=== PATIENT | male | born 1930 | race Caucasian/White ===

== ENCOUNTER 2017-01-13 01:19 | Emergency (ER) | payer MEDICARE, OTHER ==
--- NOTE | 2017-01-18 02:33 | ER ---
ADMIT: 01/13/2017 RM/LOC: ER [facility] MR#: [id number] 2620 [facility] [address] [place], [place] [address] DOYLE MUÑOZ Celso [address] [place] [address] Emergency Room Report SEX: M AGE: 86 : 1930 DATE: 01/13/2017 TIME: 0119 Please refer to my T-sheet for complete H and P. HISTORY OF PRESENT ILLNESS: Briefly, the patient comes in with just not feeling well. Problems urinating. He is a dialysis patient, end-stage renal disease. He does not make much urine anyway, but he just seems like not as much as normal, little upset stomach. He just finished an antibiotic a couple of days ago. He dialyzed this morning. He has planned on going there after he visits us here. It has been going on for about 2 to 3 days. PHYSICAL EXAMINATION: VITAL SIGNS: Blood pressure 125/87, pulse 112, respirations 18, temp 97, saturating 95%. GENERAL: No acute distress. HEENT: Head is atraumatic, normocephalic. Pupils equal, round, and reactive to light. Extraocular muscles intact. TMs clear. Throat clear. NECK: Soft, supple. No meningismus. LUNGS: Clear. HEART: Irregularly irregular. No murmur. ABDOMEN: Soft. SKIN: No rash. EMERGENCY DEPARTMENT COURSE: CBC was normal except white count 3.9, hemoglobin 9.7, platelets 131. Chemistries normal except BUN 71, glucose 104, creatinine 7.4. UA normal except 2+ protein. EKG was AFib, right bundle- branch block, rate 112. I gave him 500 mL bolus, he felt much better. I had a long discussion, ready for discharge. ASSESSMENT: 1. Dehydrated. 2. Weakness. PLAN: Follow up with his primary, go to dialysis. He recently did start metoprolol. I would like him talk to his primary about it if it continues to give him problems. Dwayne Sy MD/ deshaun JOB #: [id number] CC: Dwayne Sy MD, Attending Physician
[2017-01-18] MEDS ORDERED: ZESTRIL DPS10 MG PO (13:56)
[2017-01-18] MEDS ORDERED: LEVOTHYROXINE75 MCG PO (13:56)
[2017-01-18] MEDS ORDERED: SURFAK DPS240 MG PO (13:57)
[2017-01-18] MEDS ORDERED: PRILOSEC DPS20 MG PO (13:57)
[2017-01-18] MEDS ORDERED: CARDIZEM CD240 M1 PO (13:57)
[2017-01-18] MEDS ORDERED: COLACE-DPS100 MG PO (13:57)
[2017-01-18] MEDS ORDERED: NEPHROCAPS SOFTG1 MG PO (13:57)
[2017-01-18] MEDS ORDERED: PHOS-LO667 MG PO (13:57)
[2017-01-18] MEDS ORDERED: TYLENOL DPS325 MG PO (13:58)
== END 2017-01-13 03:10 | disposition home or self-care (01) ==
LOC: ER 01:19
DX: E86.0 Dehydration (principal); R39.15 Urgency of urination; I10 Essential (primary) hypertension; K21.9 Gastro-esophageal reflux disease without esophagitis; E03.9 Hypothyroidism, unspecified; Z79.899 Other long term (current) drug therapy

== ENCOUNTER 2017-01-15 09:19 | Observation (INO) | payer MEDICARE, OTHER ==
[~2017-01-15] VITALS: Ht 180.3 cm; Wt 80.5 kg
--- NOTE | 2017-01-17 09:46 | CO ---
ADMIT: 01/15/2017 RM/LOC: 408 [facility] MR#: [id number] 26[address] [facility] [address] [place], [place] [address] DOYLE MUÑOZ Celso [address] [place] [address] Consultation SEX: M AGE: 86 : 1930 DATE OF CONSULTATION: 01/16/2017 ATTENDING PHYSICIAN: Patti Valencia CONSULTING PHYSICIAN: Chava Florian MD REASON FOR CONSULTATION: End-stage renal disease, on hemodialysis. HISTORY OF PRESENT ILLNESS: The patient is a pleasant 86-year-old gentleman, who has a history of end-stage renal disease, for which he dialyzes on a Monday, Monday, Monday schedule. His last dialysis was this past Monday. He has a history of paroxysmal atrial fibrillation but over the last couple of months, he has been more or less in atrial fibrillation. He was evaluated by [facility] as an outpatient. Last week, he was noted to be tachycardic and I had started him on metoprolol-XL. He notes that he has been very weak over the last 1 week. He eventually presented to the hospital yesterday and was found to be in atrial fibrillation with RVR. He has been having some chest discomfort and upper abdominal discomfort as well. He was changed over from beta blockers to calcium channel blockers, and his heart rate is well controlled now. He is asymptomatic and has no complaints. I have seen and evaluated him on dialysis and he is doing fairly well. We are on target to get him down to his dry weight. REVIEW OF SYSTEMS: A complete review of systems is negative in detail except as mentioned in history of present illness above. PAST MEDICAL HISTORY: 1. End-stage renal disease, secondary to postinfectious glomerulonephritis. Current dialysis schedule is Monday, Monday, and Monday. 2. Atrial fibrillation. 3. GERD. 4. Osteoarthritis, status post left knee arthroplasty. 5. Hemolytic anemia. 6. Cataract removal. 7. Hypothyroidism. 8. Hypertension. 9. Left upper arm AV fistula. ALLERGIES: NO KNOWN DRUG ALLERGIES. MEDICATIONS: Reviewed in the chart. FAMILY HISTORY: No family history of chronic kidneys or renal replacement therapy. Mother from cancer. Father from lung disease. SOCIAL HISTORY: He is . He lives at home. No ongoing tobacco, alcohol, or recreational drug use. PHYSICAL EXAMINATION: VITAL SIGNS: Temperature 96.2 Fahrenheit, pulse 71, ADMIT: 01/15/2017 RM/LOC: 408 [facility] MR#: [id number] [address] [address] WANDA DOYLE P [address] [place] [address] Consultation SEX: M AGE: 86 : 1930 blood pressure 129/70, saturating 94% on room air. GENERAL: He is comfortable. HEENT: Head is nontraumatic and normocephalic. Extraocular movements are intact. No conjunctival pallor. Moist mucosa. NECK: Supple without any JVDs. CVS: Irregular. S1, S2 heard. No rubs, murmurs, or gallops. ABDOMEN: Soft and nontender. CHEST: Clear to auscultation. EXTREMITIES: No edema. SKIN: No rash or nodules. NEUROLOGIC: Alert, awake, and oriented x3. Does move all extremities. PSYCHIATRIC: Affect and memory within normal limits. MUSCULOSKELETAL: Major joints within normal limits. Range of motion within normal limits. LABORATORY DATA: Reviewed. BMP with creatinine of 8.6, BUN was 45, albumin was 3.2. Hemoglobin 10.2, platelets 128. Sodium 135, potassium 4.4, and CO2 of 26. ASSESSMENT AND PLAN: 1. End-stage renal disease, on hemodialysis-I will dialyze him today. He is doing fairly well on dialysis currently. 2. Hypertension-I will provide him ultrafiltration as his hemodynamics allow in order to get him down to his dry weight. 3. Anemia of chronic kidney disease-hemoglobin is acceptable. Continue to monitor. Thank you for this consultation and allowing me the opportunity to participate in this patient's care. Please do not hesitate to contact me with any questions. Chava Florian MD/ deshaun JOB #: [id number] CC: Patti Valencia, Attending Physician Patti Valencia, Family Physician
[2017-01-18] MEDS ORDERED: LEVOTHYROXINE75 MCG PO (13:56)
[2017-01-18] MEDS ORDERED: ZESTRIL DPS10 MG PO (13:56)
[2017-01-18] MEDS ORDERED: PHOS-LO667 MG PO (13:57)
[2017-01-18] MEDS ORDERED: SURFAK DPS240 MG PO (13:57)
[2017-01-18] MEDS ORDERED: PRILOSEC DPS20 MG PO (13:57)
[2017-01-18] MEDS ORDERED: CARDIZEM CD240 M1 PO (13:57)
[2017-01-18] MEDS ORDERED: COLACE-DPS100 MG PO (13:57)
[2017-01-18] MEDS ORDERED: NEPHROCAPS SOFTG1 MG PO (13:57)
[2017-01-18] MEDS ORDERED: TYLENOL DPS325 MG PO (13:58)
--- NOTE | 2017-01-19 13:33 | HP ---
ADMIT: 01/15/2017 RM/LOC: 408 [facility] MR#: [id number] [address] [facility] [address] [place], [place] [address] DOYLE MUÑOZ [address] [address] History and Physical SEX: M AGE: 86 : 1930 DATE OF SERVICE: CHIEF COMPLAINT: Two-day history of increasing weakness and now left lower chest - primarily left upper abdominal "discomfort" and "I feel like crap." HISTORY OF PRESENT ILLNESS: Mr. Muñoz is a very nice 86-year-old , retired [employer], who is on chronic hemodialysis for the last seven or eight years and follows with Dr. Florian on a Plunvk-Uxecfunup-Dvtglv dialysis schedule. He and his family live in [place] and he [facility]. He came to the emergency room two days ago (01/13/2017) because he was just not feeling very well and was having some problems urinating (he does not make much urine anyway, but he did not think it was normal) and "a little upset stomach." He had just finished Cefzil a couple of days prior because of diagnosis of sinusitis, but those symptoms had cleared. In the emergency room two days ago, his vital signs were normal but for an irregular pulse of 112. His chemistries were normal/stable. He got a 500 mL bolus of saline and "he felt much better. He was ready for discharge." Interestingly, he is followed by Derek Glover at their [facility] and approximately five days ago, metoprolol succinate ER 50 mg one q.p.m. was added for rate control. He and his family report that "they wanted to put him on anticoagulation but because of his dialysis, he bleeds a lot anyway", so that was not done. He had his first dose last Monday (it is now Monday) and he states "I think that is the problem." He came back to the emergency room this morning because of weakness and feeling "poorly." His vital signs were reasonable, his chemistries were normal/stable, creatinine of 7.5 (due for dialysis tomorrow), and his cardiac enzymes were normal but for slight bump in his troponin at 0.110 NG/mL (normal less than 0.040). We do not have any other records of what his troponin might be other than back in July of 2011, he had a troponin done that was 0.049. He was given some fluids. He was noted to be anemic in the range of 9.7, but that was stable over his visit two days prior. White count of 3500, platelets of 141,000, and he was admitted for observation given the elevated troponin. His chest x-ray report is still pending but to my eye, he has mild cardiomegaly but I do not see any active signs of failure. He is now admitted for further evaluation and treatment o.p.o. to telemetry. PAST MEDICAL HISTORY: The patient's other health history includes having a left total knee arthroplasty with Dr. Carpio back in December of 2008. He has had previous cataract surgery. He carries a diagnoses of hypothyroidism, chronic GERD, systemic hypertension, and his atrial fibrillation (apparently has been in atrial fibrillation for a couple of years). CURRENT MEDICATIONS: 1. Levothyroxine 75 mcg q.a.m. 2. Lisinopril 10 mg q.a.m. 3. Nephrocaps one cap q.p.m. 4. Amlodipine 10 mg at noon. 5. Omeprazole 20 mg one capsule at noon. 6. Colace 100 mg q.a.m. ADMIT: 01/15/2017 RM/LOC: 408 [facility] MR#: [id number] [address] [address] DOYLE MUÑOZ [address] [place] [address] History and Physical SEX: M AGE: 86 : 1930 7. Stool softener one tab q.p.m. 8. Calcium acetate 66 mg (?) one cap b.i.d. 9. Metoprolol succinate ER 50 mg one q.p.m. (just started 4-5 days ago). ALLERGIES: THERE ARE NO ALLERGIES REPORTED TO FOOD OR MEDICATION. SOCIAL HISTORY: Reveals he has never been a smoker. Does not use alcohol - at least extremely rarely. He is retired from farming. He lives independently in his home, and family is very attentive to him. FAMILY HISTORY: From old records is negative for diabetes, cancer, heart disease, and hypertension. REVIEW OF SYSTEMS: Essentially negative otherwise. He reports no fever "although sometimes I have some chills." He has recovered from his "sinus infection" and as noted above, has been off his Ceftin antibiotic x5 or 6 days. He denies any real ominous chest pain - his pain he is just complaining of is actually more left epigastric/left upper quadrant and it is more of a "discomfort." He has had no difficulty breathing. He has had no unexplained episodes of diaphoresis or nausea. He has had no nausea, vomiting, or diarrhea. States his bowels have been normal. He has had no increased swelling of lower extremities. His arthritis symptoms seem stable. PHYSICAL EXAMINATION: GENERAL: He is alert. VITAL SIGNS: Show a blood pressure of 135/85, pulse of about 110 to 120, in atrial fibrillation, respirations of 18, O2 sats 92% on room air. HEENT: Otherwise negative. NECK: Reasonably supple. I detect no obvious bruits. LUNGS: Sound clear to auscultation. CARDIAC: Exam shows an irregular regular cardiac rhythm with a soft, grade 2-3 systolic murmur (loudest at the left lower sternal border). I do not detect any displacement of his PMI or "heave". ABDOMEN: Soft. No masses, tenderness, or organomegaly. GENITAL/RECTAL: Exam was not done. EXTREMITIES: Show reasonable peripheral pulses. No edema. Obvious arthritic changes in hands, knees, and feet. NEUROLOGIC: Shows no focal signs. IMPRESSION: 1. Increasing weakness - possibly iatrogenic (beta-lulu). 2. Left upper quadrant pain/"discomfort" - associated with #1. 3. Chronic kidney disease, end-stage - on dialysis. 4. Diffuse osteoarthritis - status post left total knee arthroplasty. ADMIT: 01/15/2017 RM/LOC: 408 [facility] MR#: [id number] [address] [facility] [address] [place], [place] [address] DOYLE MUÑOZ P [address] [place] [id number] History and Physical SEX: M AGE: 86 : 1930 5. Gastroesophageal reflux disease. 6. Hypothyroidism. 7. Systemic hypertension. PLAN: He has been admitted. Given the atrial fibrillation with RVR and his minimal bump in troponin (which I think is most likely due to his kidney disease), we will get Cardiology consult. Dr. Florian has also been notified and will follow him for dialysis. Further treatment will depend on his response to our initial therapies and our workup. I have reviewed this with Doyle and his family, I think they are comfortable with that approach. Nico Gutierrez MD/ deshaun JOB #: [id number] CC: Nico Gutierrez, Attending Physician Nico Gutierrez, Family Physician SANDRA Christianson
--- NOTE | 2017-01-25 07:58 | DS ---
ADMIT: 01/15/2017 RM/LOC: 408 [facility] MR#: [id number] [address] [address] DOYLE MUÑOZ Cel[place] [address] [place] [address] Discharge Summary SEX: M AGE: 86 : 1930 ADMISSION DATE: 01/15/2017 DISCHARGE DATE: 01/17/2017 DISCHARGE DIAGNOSES: 1. Weakness. 2. Vague chest pain. 3. History of end-stage renal disease, on hemodialysis. 4. History of known gastroesophageal reflux disease. 5. Hypothyroidism. 6. Hypertension. 7. Recent medication changes with intolerance to Toprol therapy. 8. Evidence of atrial fibrillation, currently on no anticoagulation. HISTORY OF PRESENT ILLNESS: Well documented. His laboratory and radiographic assessment is as follows: On admission, white count was 3.5, hemoglobin 9.7, platelet count of 141,000. His sodium was 135, potassium 4.4, BUN and creatinine 45 and 8.6, blood sugar of 127. Liver function studies were normal. TSH 6.28. His chest x-ray show cardiomegaly with modest interstitial edema. Ultrasound of the abdomen showed hepatomegaly and mild nodularity at the margin of the gallbladder. There are gallstones within the gallbladder. The gallbladder wall is symmetrically thickened. No adjacent fluid. He is nontender on exam. EKG showed atrial fibrillation, left axis deviation, right bundle-branch block. Left anterior fascicular block. HOSPITAL COURSE: This elderly white gentleman, who has a history of end-stage renal disease, who is seen frequently by Dr. Florian, rarely by myself, is admitted to [facility] after becoming pill. After med changes were made for his atrial fibrillation. He had been started on metoprolol, he developed complaints of weakness, feeling poorly. He was brought in and had mild upset nausea. He was brought into the hospital for continued evaluation and care. Initially, on admission, he had serial cardiac enzymes performed. He was followed by Nephrology as well as ask Cardiology to see him. Gentle IV hydration initially. His metoprolol was held. He underwent further assessment with an ultrasound of his abdomen. He was started on Cardizem CD 240 mg 1 tablet daily for rate control. blood pressure performed, he did not have any evidence of orthostasis. Further assessment of his vague abdominal discomfort. Amylase and lipase were normal. Ultrasound of abdomen was obtained. He will increase activity with PT and OT. He did undergo hemodialysis. He subsequently was discharged on 01/18. No anticoagulation or atrial fibrillation secondary to bleeding risk, history of end-stage renal disease. His oxygen was weaned off and he subsequently was discharged home. ADMIT: 01/15/2017 RM/LOC: 408 [facility] MR#: [id number] [address] [address] DOYLE MUÑOZ [address] [place] [address] Discharge Summary SEX: M AGE: 86 : 1930 DISCHARGE MEDICATIONS: At the time of his discharge, we will continue on: 1. Cardizem 240 mg once daily. 2. Colace 100 mg daily. 3. Nephro-Monique one tablet daily. 4. PhosLo 1 tablet t.i.d. 5. Omeprazole 20 mg daily. 6. Synthroid 0.075 mg daily. 7. Zestril 10 mg p.o. daily. 8. . He was discharged in stable condition. He will follow up through Cardiology as well as follow up with Dr. Florian as he goes to hemodialysis with regular assessment. Patti Valencia MD/ deshaun JOB #: [id number] CC: Patti Valencia MD, Attending Physician Patti Valencia MD, Family Physician
--- NOTE | 2017-01-27 14:44 | CO ---
ADMIT: 01/15/2017 RM/LOC: 408 [facility] MR#: [id number] 2620 [facility] [address] [place], [place] [address] DOYLE MUÑOZ [address] [place] [address] Consultation SEX: M AGE: 86 : 1930 DATE OF CONSULTATION: 01/15/2017 ATTENDING PHYSICIAN: Patti Valencia CONSULTING PHYSICIAN: Phong Rose MD REASON FOR CONSULTATION: Atrial fibrillation with rapid ventricular response and weakness and indeterminate troponin. HISTORY OF PRESENT ILLNESS: Doyle is a pleasant 86-year-old male, whom I was asked to see in consultation from Dr. Gutierrez regarding atrial fibrillation, indeterminate troponin, and weakness. He has been on chronic hemodialysis he says since November of 2011. He follows with Dr. Florian here in [facility], but lives in [place] and is normally seen in the [facility]. He has a history of paroxysmal atrial fibrillation but had been maintaining sinus rhythm and has a history of sinus bradycardia. He states about 2 months ago, he was noted to be in atrial fibrillation and was seen by [facility] and [facility]. They told him that his valve was leaking and they discussed anticoagulation but given his hemodialysis and high bleeding risk, it was decided against anticoagulation. This was about 2 months ago and then after further consultation with his primary care physician, he was started on metoprolol succinate 50 mg about five days ago for rate control. He says ever since starting the metoprolol, he has felt terrible, he has been weak, he had do get some IV fluids after dialysis. He dialyzed Monday and then became a little dehydrated and received some IV fluids. He is also anemic, and he is also complaining of left epigastric discomfort. PAST MEDICAL HISTORY: 1. Atrial fibrillation. 2. History of hypertension. 3. History of end-stage renal disease, on chronic hemodialysis. 4. History of left total knee arthroplasty in 2008. 5. History of cataract surgery. 6. History of hypothyroidism. 7. History of GERD. CURRENT MEDICATIONS: 1. Levothyroxine 75 mcg daily. 2. Lisinopril 10 mg daily. 3. Nephrocaps daily. 4. Amlodipine 10 mg at noon. 5. Omeprazole 20 mg at noon. 6. Colace 100 mg q.a.m. stool softener daily. 7. Calcium acetate one capsule b.i.d. 8. Metoprolol succinate 50 mg q.p.m. started just five days ago. ALLERGIES: NO KNOWN DRUG ALLERGIES. ADMIT: 01/15/2017 RM/LOC: 408 [facility] MR#: [id number] [address] [address] DOYLE MUÑOZ [address] [place] [address] Consultation SEX: M AGE: 86 : 1930 SOCIAL HISTORY: He has never been a smoker. Denies any alcohol use. He is retired from farming. Lives independently in [place]. He has family that is closely involved in his care. FAMILY HISTORY: No family history of premature coronary artery disease. There is a family history of Parkinson's in his father, asthma in his mother, and cancer in his mother. REVIEW OF SYSTEMS: GENERAL: He has had fatigue and decreased energy. Denies any recent weight changes. HEENT: He had a sinus infection recently. Denies any visual changes. No difficulty swallowing. CARDIAC: Denies any chest pain. PULMONARY: Denies any hemoptysis. No difficulty breathing. GI: He has had some left upper quadrant pain. Denies any diarrhea or vomiting. NEUROLOGIC: No TIA or strokes. MUSCULOSKELETAL: He has arthritis. ENDOCRINE: History of hypothyroidism, on replacement. SKIN: Denies any rashes. PSYCHIATRIC: Denies any depression. His family is saying he has been very anxious and is asking about pills for anxiety. All other systems are reviewed and negative. PHYSICAL EXAMINATION: VITAL SIGNS: Blood pressure is 135/82, pulse is 110 and irregular, temperature 96.8, oxygen 90% on room air. GENERAL: He is in no acute distress. He is alert, oriented, and conversant. HEENT: Normocephalic, atraumatic. Moist mucous membranes. NECK: Supple. JVP is difficult to visualize. There is no bruits auscultated. No lymphadenopathy. LUNGS: Clear to auscultation bilaterally. HEART: Irregularly irregular. He has a 3/6 holosystolic murmur at the left sternal border and apex. ABDOMEN: Soft. He has some mild tenderness in the left upper quadrant and epigastric area. This is fairly mild. There is no rebound tenderness. EXTREMITIES: He has no edema. No cyanosis or clubbing. He has changes of arthritis. NEUROLOGIC: Cranial nerves II through XII intact. PSYCHIATRIC: He is alert, oriented, and appropriate. IMPRESSION AND PLAN: 1. Atrial fibrillation with rapid ventricular response. 2. Likely mitral regurgitation. 3. Weakness, possibly beta-lulu induced. 4. End-stage renal disease, on hemodialysis x5 years. 5. Abdominal pain. ADMIT: 01/15/2017 RM/LOC: 408 [facility] MR#: [id number] [facility] [address] [address] DOYLE MUÑOZ [address] [place] [address] Consultation SEX: M AGE: 86 : 1930 RECOMMENDATIONS: He has a history of paroxysmal atrial fibrillation and was found apparently recently to be in persistent atrial fibrillation for about the last two months. His heart rate has been rapid and was just started on beta-lulu couple days ago. He was seen at [facility] in [place] and had an echo done. We will get the results of this echo. They did decide against anticoagulation given his hemodialysis and bleeding risk. At this point, I am not sure if all of his symptoms are from the beta-lulu but they certainly may be contributing. We will stop his Toprol. We will also stop his amlodipine and change this to Cardizem CD for rate control with his atrial fibrillation. His primary doctor is working up his abdominal pain with an ultrasound and getting Physical Therapy and Occupational Therapy involved. Once we get the results from his outpatient Cardiology evaluation, we can decide about further testing here. Phong Rose MD/ deshaun JOB #: [id number] CC: Patti Valencia, Attending Physician Patti Valencia, Family Physician
--- NOTE | 2017-02-25 21:36 | ER ---
ADMIT: 01/15/2017 RM/LOC: 408 [facility] MR#: [id number] [address] [place] [address] [place], [place] [address] DOYLE WINTERS [address] [place] [address] Emergency Room Report SEX: M AGE: 86 : 1930 DATE: 01/15/2017 An 86-year-old, Doyle Winters, comes to the Emergency Department with complaints of a day's worth of weakness. Of note, he had recently started metoprolol for heart rate control. He just describes a generalized weakness. He has had similar symptoms in the past. He is in the Emergency Department this past Monday with similar complaints. He has a past medical history of AFib, hypertension, and renal failure. He is dialysis dependent. Does not smoke or drink. PHYSICAL EXAMINATION: GENERAL: Revealed an 86-year-old gentleman, in no acute distress. HEENT: Normocephalic and atraumatic. He is alert and oriented with no focal findings. Coma Score was 15. Cranial nerves II through XII are grossly intact. CARDIOVASCULAR: Regular rate and rhythm. LUNGS: Clear to auscultation. ABDOMEN: Unremarkable. SKIN: Unremarkable. The patient was subsequently admitted with the diagnosis of chest pain rule out, chronic renal failure, and orthostatic hypotension. LABORATORY DATA: Pertinent labs revealed troponin of 0.110, BUN 36, glucose 133, creatinine 1.5. White count 3.5 and hemoglobin 9.7. EKG showed atrial fib with right bundle-branch block. Bill Fowler MD/ deshaun JOB #: [id number] CC: Patti Valencia MD, Attending Physician Patti Valencia MD, Family Physician
== END 2017-01-17 14:30 | disposition home or self-care (01) ==
LOC: ER 09:19 → 4PCU 10:30
PROVIDERS: ADMIT Internal Medicine
DX: I12.0 Hypertensive chronic kidney disease with stage 5 chronic kidney disease or end stage renal disease (principal); N18.6 End stage renal disease; K21.9 Gastro-esophageal reflux disease without esophagitis; I48.91 Unspecified atrial fibrillation; I34.0 Nonrheumatic mitral (valve) insufficiency; E03.9 Hypothyroidism, unspecified; Z96.652 Presence of left artificial knee joint; Z79.899 Other long term (current) drug therapy

== ENCOUNTER 2017-03-14 06:30 | Day surgery (SDC) | payer MEDICARE, OTHER ==
[~2017-03-14] VITALS: Ht 180.3 cm; Wt 79.9 kg
[~2017-03-14 06:30] MED LIST: CARDIZEM CD240 M1 PO; COLACE-DPS100 MG PO; LEVOTHYROXINE75 MCG PO; NEPHROCAPS SOFTG1 MG PO; PHOS-LO667 MG PO; PRILOSEC DPS20 MG PO; SURFAK DPS240 MG PO; TYLENOL DPS325 MG PO; ZESTRIL DPS10 MG PO
== END 2017-03-14 10:20 | disposition home or self-care (01) ==
LOC: RAD.S 06:30 → EDSTATUS 08:00 → RAD.S 10:20
PROC: B51WYZZ Fluoroscopy of Dialysis Shunt/Fistula using Other Contrast (ICD-10-PCS; principal; 2017-03-14)
DX: T82.858A Stenosis of other vascular prosthetic devices, implants and grafts, initial encounter (principal); N18.6 End stage renal disease; Z79.899 Other long term (current) drug therapy

== ENCOUNTER → 2017-04-03 | Outpatient (CLI) | payer MEDICARE, OTHER | END | disposition home or self-care (01) | LOC: RAD.S 08:00 | DX: R10.9 Unspecified abdominal pain (principal); R19.7 Diarrhea, unspecified; K22.4 Dyskinesia of esophagus ==